=== PATIENT | male | born 1955 | race Caucasian/White ===

== ENCOUNTER 2020-03-08 07:07 | Day surgery (SDC) | payer BC, OTHER ==
--- NOTE | 2020-02-29 09:39 | HP ---
DATE OF ADMISSION: 03/08/2020 DATE OF DICTATION: 12/28/2019 DIAGNOSIS ON ADMISSION: Right inguinal hernia. BRIEF HISTORY: This is a 64-year-old gentleman who on December 19 was at work and was lifting a bunch of boxes. As he was turning to move the boxes he felt something pull in his right groin associated with sharp pain. This caused the gentleman to drop the boxes. Since that time he has had discomfort in the right groin associated with a large lump. He wishes to have his lump repaired (hernia). Patient has no complaints of nausea or vomiting at this time. He has had no change in bowel habits. Patient states he has had discomfort in the right groin since that incident. However, the discomfort is bearable. PAST MEDICAL HISTORY: Significant for hypertension, diabetes and eye disease. PAST SURGICAL HISTORY: None. ALLERGIES: None. MEDICATIONS: Metformin, atorvastatin, Tradjenta, Timoptic, tadalafil, carvedilol. SOCIAL HISTORY: Patient does not smoke, does not drink. No history of drug use. PHYSICAL EXAMINATION: Patient examined in the erect and supine position. He has an obvious large right inguinal hernia with encroachment into the right proximal scrotum. The right testicle appears to be within normal limits as well as the left. Scrotum within normal limits bilaterally. He has a large right inguinal hernia which is only partially reducible in the supine position. On the left side there is no obvious hernia. There is a fair amount floor laxity noted and a small hernia cannot be ruled out. Patient is also noted to have a chronically incarcerated ventral hernia at the level of the umbilicus. He has a large diastasis from xiphoid to umbilicus. IMPRESSION/PLAN: Right inguinal hernia, right groin discomfort, incidental finding of an umbilical hernia, diastasis recti. This is a 64-year-old gentleman who while at work on December 19 was lifting boxes and subsequently developed pain in the right groin region. Following this incident he noted a large lump in his right groin and has had persistent discomfort. On physical examination he has a right inguinal hernia with encroachment into the proximal scrotum. He is noted to have laxity in the left groin as well and a small hernia cannot be entirely ruled out. Incidental finding of a diastasis recti as well as an umbilical hernia. Would recommend a laparoscopic repair of the right inguinal hernia. At the time of the laparoscopy the left side should be examined as well to rule out for a small hernia missed on exam. If a hernia is seen it will be repaired; if no hernia is noted, a piece of mesh will be left in direct inguinal space for reinforcement. The indications, alternatives and complications of the procedure were discussed. Questions answered. Will plan to obtain written consent the day of surgery. Cedric DALEY [id number] cc: Chase Montelongo MD [phone]
[2020-03-02 13:50] VITALS: BMI 28.3
[2020-03-08] MEDS ORDERED: TAMSULOSIN HCL 0.4 MG CAP ONE (07:38)
[2020-03-08] MEDS ORDERED: DEXAMETHASONE SOD PHOSPHATE/PF 10 MG/ML SDV ONE (09:22)
[2020-03-08] MEDS ORDERED: BUPIVACAINE HCL/PF 0.5% (5 MG/ML) 30 ML VIAL IJ ONE (09:23)
[2020-03-08] MEDS ORDERED: MIDAZOLAM HCL 2 MG/2 ML SINGLE DOSE VIAL ONE ×2 (09:23→11:29)
[2020-03-08] MEDS ORDERED: PROPOFOL 20 ML ONE ×3 (09:39→10:22)
[2020-03-08] MEDS ORDERED: ROCURONIUM BROMIDE 50 MG/5 ML SYRINGE ONE (09:39)
[2020-03-08] MEDS ORDERED: ONDANSETRON 4 MG/2 ML VIAL ONE (09:43)
[2020-03-08] MEDS ORDERED: DEXAMETHASONE SOD PHOSPHATE 4 MG/1 ML VIAL ONE (09:43)
[2020-03-08] MEDS ORDERED: ceFAZolin SODIUM 1 GM VIAL ONE (09:43)
[2020-03-08] MEDS ORDERED: GLYCOPYRROLATE 0.2 MG/1 ML VIAL ONE (10:14)
[2020-03-08] MEDS ORDERED: NEOSTIGMINE METHYLSULFATE 0.5 MG/ML - 10 ML MDV ONE (10:14)
[2020-03-08] MEDS ORDERED: ONDANSETRON 4 MG/2 ML VIAL IVPUSH PRN (12:47)
[2020-03-08] MEDS ORDERED: oxyCODONE HCL 5 MG TABLET PO PRN (12:47)
[2020-03-08] MEDS ORDERED: MIDAZOLAM HCL 2 MG/2 ML SINGLE DOSE VIAL IVPUSH ONE (12:49)
[2020-03-08] MEDS ORDERED: LACTATED RINGERS SOLUTION 1,000 ML IV SCH (13:00)
[2020-03-08 13:14] VITALS: TEMP 97.6
[2020-03-08 14:41] VITALS: BP 156/82; PULSE 68
--- NOTE | 2020-03-09 12:36 | OP ---
DATE OF OPERATION: 03/08/2020 PREOPERATIVE DIAGNOSIS: Large right inguinal hernia. POSTOPERATIVE DIAGNOSIS: Large right indirect inguinal hernia, left indirect inguinal hernia. PROCEDURE: Bilateral inguinal hernia repair with mesh. SURGEON: Edgar Middleton MD FIXTURE DESIGNER: Jameson Coon DO ANESTHESIA: Justine Carnes MD (general). ESTIMATED BLOOD LOSS: Minimal. SPECIMEN: None. INDICATION FOR PROCEDURE: This is a 64-year-old gentleman who was at work on December 19, lifting a bunch of boxes and subsequently developed a pull and pain in the right groin region. On physical examination, he has an obvious large right inguinal hernia. He is here for operative repair. DESCRIPTION OF PROCEDURE: Patient identified and appropriately positioned on the operating room table. After placement under anesthesia, prepped and draped in the usual sterile fashion with ChloraPrep. An infraumbilical incision was made, deepened to subcutaneous tissue (patient noted to have a preoperative umbilical hernia which was not addressed during this operation). The fascia of the rectal mucosa on the right identified, divided sharply, the muscles split. Under direct vision, a resector balloon followed by a structural balloon placed. Also under direct vision, a suprapubic 11-mm port placed. The remaining port placed under direct vision as well. The following structures on the right side identified: Pubic tubercle, Dioin's ligament, inferior epigastric vessels, spermatic cord, and lateral abdominal wall. During this dissection he had no direct component. He had a large indirect inguinal hernia sac reduced back in the preperitoneal space with blunt dissection along with a moderate-sized cord lipoma. A 5.5 x 6 piece of Versatex mesh was keyholed, placed through the superior port site. The mesh wrapped around the cord structures laterally to reconstruct the internal ring. Lateral mesh anchored to anterior abdominal wall and lateral abdominal wall. Medially mesh anchored to the anterior abdominal wall, pubic tubercle, and Dioni's ligament. Upon completion of the right side, similar structures on the left side identified. On the left side, surprisingly, he had a large indirect inguinal hernia as well. The sac was actually larger than that of the right, and there was a moderate-sized lipoma associated with this. Both reduced back in the preperitoneal space. Due to the chronicity of the hernia and the scarring, a peritoneotomy was made and subsequently closed with the [employer] business [employer] professor. Another 5.5 x 6 piece of Versatex mesh was keyholed, placed through the superior port site. The mesh wrapped around the cord structures laterally to reconstruct the internal ring. Laterally, mesh anchored to the anterior abdominal wall and lateral abdominal wall. Medially, mesh anchored to the anterior abdominal wall, pubic tubercle, and Dioni's ligament. There was good overlap in the midline. All abdominal wall, lateral abdominal wall anchors placed under direct counter palpation. The mesh used was Versatex and the anchoring system AbsorbaTack. The fascia at the port sites reapproximated with an 0 Vicryl suture. All skin closed with 4-0 Biosyn followed by Dermabond. At the conclusion of this case, sponge counts correct. ATTESTATION: Brief operative note handwritten on the preprinted form. [facility] queried prior to giving any narcotics. Cedric DALEY [id number] cc: Chase Montelongo MD MTDD
== END 2020-03-08 14:40 | disposition home or self-care (01) ==
LOC: FASU 07:07
PROVIDERS: ATTEND Surgery
PROC: 0YUA4JZ Supplement Bilateral Inguinal Region with Synthetic Substitute, Percutaneous Endoscopic Approach (ICD-10-PCS; principal; 2020-03-08 10:00)
DX: K40.20 Bilateral inguinal hernia, without obstruction or gangrene, not specified as recurrent (principal)
CPT/HCPCS: 82962; 94760